=== PATIENT | male | born 1945 | race Caucasian/White ===

== ENCOUNTER 2022-11-08 09:22 | Emergency (ER) | payer BC, MEDICARE ==
[2022-11-08] MEDS ORDERED: Apixaban 5 MG Tab PO ONE (09:23)
[2022-11-08] MEDS ORDERED: Lidocaine 2% 20 ML MDV INFILT ONE (09:23)
[2022-11-08] MEDS ORDERED: Diphtheria,Pertussis(Acell),Tetanus Vaccine 0.5 ML Syringe IM ONE (09:44)
[2022-11-08] MEDS ORDERED: Apixaban 5 MG Tab PO SCH (10:45)
[2022-11-08] MEDS ORDERED: Apixaban 5 MG Tab ONE (10:48)
== END 2022-11-08 11:00 | disposition home or self-care (01) ==
LOC: FB.ED 09:22
DX: S61.012A Laceration without foreign body of left thumb without damage to nail, initial encounter (principal); I48.91 Unspecified atrial fibrillation; E78.00 Pure hypercholesterolemia, unspecified; I10 Essential (primary) hypertension; Z88.5 Allergy status to narcotic agent; Z79.01 Long term (current) use of anticoagulants; Z79.84 Long term (current) use of oral hypoglycemic drugs; Z79.82 Long term (current) use of aspirin; Z79.899 Other long term (current) drug therapy; Z23 Encounter for immunization; W23.1XXA Caught, crushed, jammed, or pinched between stationary objects, initial encounter
CPT/HCPCS: 12001; 90471; 90715; 93005; 99283; A9270